=== PATIENT | male | born 1990 | race Asian ===

== ENCOUNTER 2018-04-29 18:57 | Emergency (ER) | payer OTHER ==
--- NOTE | 2018-04-29 19:28 | ED ---
GI/ HPI - HPI Summary HPI Summary: 27-year-old male presents with fever and diarrhea today. He states his friends was sick this week with similar symptoms. Denies any cough. He did take some ibuprofen prior to arrival. States he was [facility] and sent here because is feeling very weak. Negative flu. He denies any recent antibiotic use. he denies eating anything different. He admits to headache. No neck stiffness. No sore throat or sinus congestion. He denies any bowel pain. Denies any nausea or vomiting. Has no medical conditions. - History of Current Complaint Chief Complaint: EDNauseaVomitDiarrh Time Seen by Provider: 04/29/18 19:12 Stated Complaint: GENERAL ILLNESS Pain Intensity: 0 - Allergy/Home Medications Allergies/Adverse Reactions: Allergies Allergy/AdvReac Type Severity Reaction Status Date / Time No Known Allergies Allergy Verified 04/29/18 19:04 Home Medications: Home Medications NK [No Home Medications Reported] 04/29/18 [History Confirmed 04/29/18] PMH/Surg Hx/FS Hx/Imm Hx Endocrine/Hematology History: Denies: Hx Anticoagulant Therapy Respiratory History: Denies: Hx Asthma Infectious Disease History: No Infectious Disease History: Reports: Traveled Outside the [place] in Last 30 Days - [place] - Family History Known Family History: Negative: Diabetes - Social History Substance Use Type: Reports: None Review of Systems Positive: Fever Negative: Chest Pain Negative: Shortness Of Breath, Cough Positive: Diarrhea. Negative: Abdominal Pain, Vomiting, Nausea All Other Systems Reviewed And Are Negative: Yes Physical Exam Triage Information Reviewed: Yes Vital Signs On Initial Exam: Initial Vitals Temp Pulse Resp BP Pulse Ox 99.2 F 102 20 113/61 97 04/29/18 18:59 04/29/18 18:59 04/29/18 18:59 04/29/18 18:59 04/29/18 18:59 Vital Signs Reviewed: Yes Appearance: Positive: Well-Appearing Skin: Positive: Warm, Dry Head/Face: Positive: Normal Head/Face Inspection Eyes: Positive: Normal, Conjunctiva Clear ENT: Positive: Pharynx normal Respiratory/Lung Sounds: Positive: Clear to Auscultation, Breath Sounds Present Cardiovascular: Positive: Normal, RRR Abdomen Description: Positive: Nontender, Soft Bowel Sounds: Positive: Present Musculoskeletal: Positive: Normal Neurological: Positive: Normal Psychiatric: Positive: Normal Diagnostics - Vital Signs Vital Signs Temp Pulse Resp BP Pulse Ox 04/29/18 18:59 99.2 F 102 20 113/61 97 - Laboratory Result Diagrams: 04/29/18 20:24 04/29/18 20:24 Lab Statement: Any lab studies that have been ordered have been reviewed, and results considered in the medical decision making process. Re-Evaluation - Re-Evaluation First Eval Change: Improved Comment: feeling better after fluids Second Eval Re-Evaluation Time: 22:16 Change: Improved Comment: improved no longer orthostatic, discussed loperamide and patient declined GIGU Course/Dx - Course Course Of Treatment: 27-year-old male presents with fever and diarrhea today. He states his friends was sick this week with similar symptoms. Denies any cough. He did take some ibuprofen prior to arrival. States he was [facility] and sent here because is feeling very weak. Negative flu. He denies any recent antibiotic use. he denies eating anything different. He admits to headache. No neck stiffness. No sore throat or sinus congestion. He denies any bowel pain. Denies any nausea or vomiting. Has no medical conditions. On exam lungs clear to auscultation. Abdomen soft nontender. wbc normal. crp elevated. sodium and chloride low so gave fluids. potassium 3.3. gave fluids and feeling better. told to continue fluids PO at home. patient understand and agrees with plan. - Diagnoses Differential Diagnoses - Male: Gastroenteritis (Bacterial), Gastroenteritis ( Viral), Urinary Tract Infection Provider Diagnoses: Fever, Diarrhea Discharge - Sign-Out/Discharge Documenting (check all that apply): Patient Departure - Discharge Plan Condition: Good Disposition: HOME Patient Education Materials: Acute Diarrhea (ED) Referrals: No Primary Care Phys,NOPCP [Primary Care Provider] - Additional Instructions: Drink fluids as tolerated When able to eat follow BRAT diet: Bananas, rice, applesauce, toast Take ibuprofen or Tylenol for fever every 6 hours Return to ED if develop fever that does not respond to Tylenol or ibuprofen, severe abdominal pain, or any new or worsening symptoms - Billing Disposition and Condition Condition: GOOD Disposition: Home
[2018-04-29] MEDS: NS 0.9% 1000 ML* 2,000 ML IV ONE (19:50)
[2018-04-29 20:32] LABS: ABS Basophils 0 10^3/ul (0-0.2); ABS Eosinophils 0 10^3/ul (0-0.6); ABS Lymphocytes 0.5 10^3/ul (1.0-4.8); ABS Monocytes 0.9 10^3/ul (0-0.8); ABS Neutrophils 8.2 10^3/ul (1.5-7.7); ABS Nucleated RBC 0 10^3/ul; Eosinophil % 0 %; Hematocrit 40 % (42-52); Hemoglobin 13.7 g/dl (14.0-18.0); Lymphocyte % 5.2 %; Mean Corpuscular HGB Conc 34 g/dl (31-36); Mean Corpuscular Hemoglobin 32 pg (27-31); Mean Corpuscular Volume 93 fL (80-94); Mean Platelet Volume 7.3 fL (7.4-10.4); Nucleated Red Blood Cells % 0; Platelet Count 185 10^3/ul (150-450); Red Cell Distribution Width 13 % (10.5-15); White Blood Count 9.6 10^3/ul (3.5-10.8)
[2018-04-29 21:07] LABS: ALT 12 U/L (7-52); AST 14 U/L (13-39); Albumin 4.2 g/dL (3.2-5.2); Albumin/Globulin Ratio 1.8 (1-3); Alkaline Phosphatase 49 U/L (34-104); Anion Gap 9 mmol/L (2-11); BUN/Creatinine Ratio 11.8 (8-20); Blood Urea Nitrogen 11 mg/dL (6-24); C Reactive Protein 112.37 mg/L (<8.01); CO2 Carbon Dioxide 21 mmol/L (22-32); Calcium 8.3 mg/dL (8.6-10.3); Chloride 98 mmol/L (101-111); EGFR Non-African American 98.2 (>60); Globulin 2.3 g/dL (2-4); Glucose 132 mg/dL (70-100); Potassium 3.3 mmol/L (3.5-5.0); Sodium 128 mmol/L (135-145); Total Protein 6.5 g/dL (6.4-8.9)
[2018-04-29] MEDS ORDERED: Potassium Chlor TAB* 10 MEQ TAB.ER PO ONE (21:11)
[2018-04-29] MEDS ORDERED: NS 0.9% 1000 ML* 1,000 ML IV ONE (21:11)
[2018-04-29 22:34] VITALS: BP 110/65
== END 2018-04-29 22:34 | disposition home or self-care (01) ==
LOC: ED 18:57
DX: R50.9 Fever, unspecified (principal); R19.7 Diarrhea, unspecified
CPT/HCPCS: 36415; 80053; 83605; 83690; 85025; 86140; 96360; 96361; 99283; A9270-GY